=== PATIENT | male | born 1990 | race Caucasian/White ===

== ENCOUNTER → 2022-08-27 09:15 | Outpatient (CLI) | payer OTHER, SELFPAY ==
--- NOTE | ~2022-08-27 | US_ITS ---
EXAMINATION: US abdomen complete DATE: 08/27/2022 09:39 INDICATION: Fatty liver. Abnormal liver function tests. TECHNIQUE: Multiple grayscale and Doppler ultrasound images of the abdomen were obtained. COMPARISON: None FINDINGS: The visualized portions of the head and body of the pancreas are normal. There is diffuse h epatic steatosis. There is normal flow in main portal vein. The gallbladder is normal in size. No gal lstones or gallbladder wall thickening. There is no sonographic Alvarado sign. The common duct is josé antonio l and measures 3 mm. The kidneys are normal in size. The spleen is normal in size. Abdominal aorta is normal in caliber. Inferior vena cava is normal. IMPRESSION: 1. Diffuse hepatic steatosis. Reviewed, dictated and finalized at location A.
== END ==
PROVIDERS: PCP Emergency Medicine; Visit Provider Emergency Medicine
DX: K76.0 Fatty (change of) liver, not elsewhere classified (principal)
CPT/HCPCS: 76700

== ENCOUNTER 2023-05-11 11:18 | Emergency (ER) | payer OTHER, SELFPAY ==
--- NOTE | ~2023-05-11 | XR_ITS ---
Right wrist Technique: PA, oblique, lateral, and ulnar deviation views were obtained. Clinical History: Pain Findings: No acute fracture or dislocation is seen. Probable old, healed fracture deformity the base of fifth metacarpal. Osseous alignment is anatomic. Joint spaces are preserved. Soft tissues are unre markable. Impression: No acute reality. Probable old, healed fracture deformity of the base the fifth metacarpal. Reviewed, dictated and finalized at location M. E [facility]FFER Impression: No acute reality. Probable old, healed fracture deformity of the base the fifth metacarpal.
[2023-05-11 11:50] VITALS: BP 154/101; PULSE 88; RESP 18; TEMP 36.3; O2SAT 99
--- NOTE | 2023-05-11 12:23 | ED.UPPEXIN ---
HPI - Extremity Injury (Upper) General Chief Complaint: Extremity Injury, Upper Stated Complaint: rt upper extremity injury Time Seen by Provider: 05/11/23 12:15 Source: patient and RN notes reviewed Mode of arrival: ambulatory Limitations: no limitations History of Present Illness HPI narrative: Patient presents today complaining of right wrist pain. He fell moving some boxes 2 days ago injuring his wrist. Denies numbness or tingling. He is currently pain-free, but pain increases with movement of the wrist. He has tried ice with some relief. Related Data Home Medications Medication Instructions Recorded Confirmed No Home Medications 05/11/23 05/11/23 Allergies Allergy/AdvReac Type Severity Reaction Status Date / Time Penicillins Allergy Unknown Verified 05/11/23 12:04 Review of Systems Review of Systems: CONSTITUTIONAL: Denies body aches, fever, chills, or sweats. EYES: Denies visual changes, redness, or discharge. ENT: Denies rhinorrhea, congestion, sore throat, or otalgia. CARDIOVASCULAR: Denies chest pain, palpitations, or edema. RESPIRATORY: Denies cough or dyspnea. GASTROINTESTINAL: Denies abdominal pain, nausea, vomiting, or diarrhea. GENITOURINARY: Denies dysuria or hematuria. SKIN: Denies rash, itching, or wounds. MUSCULOSKELETAL: Denies back pain, or myalgia.+ right wrist pain NEUROLOGIC: Denies headache, numbness, tingling, or weakness. PSYCH: Denies depression or anxiety. PMFSH Social History Social History Smoking status: Light tobacco smoker Alcohol intake: current Comments At time of signature, I have reviewed and agree with nursing past medical, surgical, social and family history unless otherwise noted. Please see nursing chart for further information. There is no relevant family history pertinent to the presenting complaint Exam Narrative: GENERAL: Well-appearing, well-nourished, and in no acute distress. HEAD: Normocephalic, atraumatic. EYES: EOMI. No redness or drainage. Conjunctivae normal. ENT: Mucous membranes pink and moist. NECK: Normal AROM. CHEST: No respiratory distress. EXTREMITIES: Right wrist: No edema, ecchymosis, or erythema. No deformities of the hand or wrist. No tenderness about the wrist, but pain increases to the dorsum of the wrist with flexion and extension. No pain with pronation or supination. Distal sensation intact. Capillary refill normal. Radial pulse normal. SKIN: Warm, dry, no rash. Capillary refill normal. Normal skin turgor. NEURO: No focal deficits. Alert and oriented x3. Gait steady. PSYCH: Normal affect. No signs of depression or anxiety. Course Course Level of Care: Express Care Visit Vital Signs Vital signs: Vital Signs Temperature 97.3 F L 05/11/23 11:50 Pulse Rate 88 05/11/23 11:50 Respiratory Rate 18 05/11/23 11:50 Blood Pressure 154/101 H 05/11/23 11:50 Pulse Oximetry 99 05/11/23 11:50 Oxygen Delivery Room Air 05/11/23 11:50 Temperature 97.3 F L 05/11/23 11:50 Pulse Rate 88 05/11/23 11:50 Respiratory Rate 18 05/11/23 11:50 Blood Pressure 154/101 H 05/11/23 11:50 Pulse Oximetry 99 05/11/23 11:50 Oxygen Delivery Room Air 05/11/23 11:50 Reviewed MDM - Extremity Injury (Upper) MDM Narrative Medical decision making narrative: X-rays negative for anything acute. Symptoms likely due to a wrist sprain. Discussed [id number] treatment and PCP or ortho follow-up if needed. No prescription medications indicated at this time. Anticipatory guidance given. Differential Diagnosis Differential diagnosis: Likely sprain and strain of wrist and fracture of wrist Imaging Data Radiologist's impression: ITS Impressions Wrist X-Ray 05/11/23 12:49 Impression: No acute reality. Probable old, healed fracture deformity of the base the fifth metacarpal. Critical Care Time Critical Care Ti
== END 2023-05-11 13:22 | disposition home or self-care (01) ==
PROVIDERS: Emergency Provider Nurse Practitioner; PCP Emergency Medicine
DX: S63.501A Unspecified sprain of right wrist, initial encounter (principal); F17.200 Nicotine dependence, unspecified, uncomplicated; W19.XXXA Unspecified fall, initial encounter
CPT/HCPCS: 73110; 99213; G0463